=== PATIENT | male | born 1975 | race Caucasian/White ===

== ENCOUNTER 2018-12-29 12:05 | Emergency (ER) | payer MEDICAID, SELFPAY ==
[2018-12-29 12:06] VITALS: BP 122/85; PULSE 112; RESP 18; TEMP 36.6; O2SAT 98; BMI 32.4
--- NOTE | 2018-12-29 13:21 | ED.DCSUM_ITS ---
History of Present Illness Chief Complaint: Back Informant: Patient, Family Onset: Month(s) - Onset of symptoms approximately 1 month ago Context: Gradual Onset Injury: - - No history of trauma Timing: Continuous Quality: Dull, Aching Location: Lumbar, Buttock, Left Leg - Posteriorly to the ankle Current Severity: Severe Maximum Severity: Severe Worsened by: improves with: Movement, Ambulation, Bending Relieved by: Nothing Associated Symptoms: Radiation to Left Leg Narrative: Patient is a 43-year-old male status post back surgery by spine surgeon at [facility]. He does not know what was done. He presents with 1 month of left lower back pain radiating down the posterior aspect the left lower extremity the ankle. He denies bowel or bladder dysfunction. He denies saddle paresthesia or anesthesia. He denies fever, chills or night sweats. He denies foot drop. He denies weakness in his quadricep muscles going up or down steps. He does report leg giving out with severe pain. He states he would prefer to stand versus sit. Prior similar symptoms: Yes Recent Illness/Hospitalization: Yes - Past Medical History (1) History of diabetes mellitus Status: Acute (2) History of hypertension Status: Acute (3) History of hypercholesterolemia Status: Acute Past Medical History - Allergies and Home Meds Allergies/Adverse Reactions: Allergies aspirin Allergy (Verified 12/29/18 12:08) Angioedema Primary Care Physician: Angeles Montenegro,Out of [Primary Care Provider] - Prior records reviewed: Yes Surgical History: - - Prior back surgery Lives: Spouse/ Significant Other Smoking Status: Current every day smoker Drugs: None Review of Systems General: Denies: Chills, Fever, Malaise, Subjective, Sweats, Weight loss Eyes: Denies: Visual changes - bilaterally, Blurred Vision - bilaterally Cardiovascular: Denies: Chest pain, Palpitations Respiratory: Denies: Dyspnea, Cough, Dyspnea on exertion Gastrointestinal: Denies: Abdominal pain, Nausea, Vomiting, Diarrhea Musculoskeletal: Reports: Back pain, Extremity Pain. Denies: Myalgias, Arthralgias, Neck pain, Swelling Skin: Denies: Rash Neurological: Denies: Weakness, Parasthesia, Numbness Hematologic: Denies: Easy bruising, Easy bleeding Allergy: Denies: Uticaria, Swelling of the mouth Physical Exam Vital Signs/Narrative: Vital Signs Temp Pulse Resp BP Pulse Ox 12/29/18 12:06 98 F 112 H 18 122/85 H 98 Inital Vital Signs reviewed: Yes General: Well nourished, Well developed, - - Patient appears in discomfort. He is tachycardic. Head: Normocephalic, Atraumatic Eyes: Perrl, EOMI. Negative for: Pale conjunctiva, Scleral icterus ENT: Moist mucous membranes, No rhinorrhea Neck: Supple, Nontender Cardiovascular: Regular rate, Regular rhythm, No murmurs, Normal S1, Normal S2 Respiratory: No distress, CTA bilaterally, Chest nontender Rectal: - - Normal perianal sensation Back: Normal Inspection, Surgical Scar, Well-Healed, Negative SLR - Right, Positive SLR - Left. Negative for: Nontender, Paraspinal Tenderness, CVA tenderness, Positive SLR - Right Extremeties: Nontender, No edema, - - PT and DP pulses are palpable Skin: Normal color, No rash. Negative for: Cyanosis, Jaundice Neuro: Alert, Oriented, Normal Strength, Normal Sensation, Normal DTR, Normal Gait, Normal Reflexes - Patella and ankle reflexes are 2-3+ and symmetric. Reflexes: Right Patellar, Right Achilles, Left Patellar, Left Achilles. Negative for: Right Clonus, Right Babinski, Left Clonus, Left Babinski Psychological: Normal affect Diagnostic/Tx/Re-eval - Medical Decision Making Patient's history and exam concerning for L5-S1 disc herniation. Patient unable to stand to walk because of pain. Will medicate with 4 mg of Zofran 8 mg of morphine and reassess. There are no neurologic deficits noted. Patient was reevaluated at 1445. He is still in sniffing of pain. He was able to stand. He does not have a foot drop. He is able to do a 1 legged squat right and left with significant difficulty on the left secondary to pain. He is able to raise up on his toes and heels. Unable to walk on his heels or toes. Since pain is in a radicular pattern with a positive straight leg raise and significant discomfort in spite of IV morphine 8 mg x 2 an MRI with and without contrast was ordered. Since he is diabetic BMP was ordered to determine renal function. Disposition to be made after MRI results are available for review. ED Disposition - Plan for ED Patient: Diagnosis: Left-sided low back pain with sciatica Referrals: [facility] Doctor,Out of [Primary Care Provider] -
[2018-12-29] MEDS: Ondansetron 4 MG/2 ML Vial IV (13:33)
[2018-12-29] MEDS: morphine 8 MG/ML Syringe IV ×2 (13:33→15:07)
--- NOTE | 2018-12-29 14:56 | MRI_ITS ---
STUDY: MRI LUMBAR SPINE WITH AND WITHOUT CONTRAST REASON FOR EXAM: Male, 43 years old. Back pain, right-sided radiculopathy TECHNIQUE: Standardized fat and water weighted pulse sequences were obtained in the sagittal and axial planes. 18 IV Dotarem was administered for the contrast portion of the examination. COMPARISON: None FINDINGS: T12-L1: Normal endplates. Normal disc height, hydration and morphology. Normal bilateral facet joints. Normal central canal and bilateral lateral recesses. Normal bilateral intervertebral neural foramina. Normal lumbar lordosis. There is no substantial scoliosis. Normal conus medullaris that terminates at the L1-2: Normal endplates. Normal disc height, hydration and morphology. Normal bilateral facet joints. Normal central canal and bilateral lateral recesses. Normal bilateral intervertebral neural foramina. L2-3: Normal endplates. Normal disc height, hydration and morphology. Normal bilateral facet joints. Normal central canal and bilateral lateral recesses. Normal bilateral intervertebral neural foramina. L3-4: Normal endplates. Normal disc height, hydration and morphology. There is mild facet spondylosis Normal central canal and bilateral lateral recesses. Normal bilateral intervertebral neural foramina. L4-5: Small right posterior paracentral bulging annulus is increased T2 signal within the posterior disc margin. There is no significant central canal stenosis. There is mild ligamentous hypertrophy. There is mild facet spondylosis. There is no significant foraminal stenosis. L5-S1: There are postsurgical changes with left-sided laminectomy at L5. This susceptibility artifact within the posterior soft tissues. There is nonenhancing left paracentral, posterior lateral inferior extrusion. There is also some surrounding enhancing epidural scar. This posterior displacement of the left S1 nerve root within the central canal. There is mild posterior displacement right S1 nerve root within the central canal. There is mild central canal and mild bilateral foraminal stenosis Normal visualized sacral ala. Normal visualized paraspinous soft tissue structures. There is significant distention of the bladder. MRI/Spine Lumbar W/WO Contrast IMPRESSION: postsurgical changes with left-sided laminectomy at L5. This susceptibility artifact within the posterior soft tissues. There is nonenhancing left paracentral, posterior lateral inferior extrusion at L5-S1. There is also some surrounding enhancing epidural scar. This posterior displacement of the left S1 nerve root within the central canal. There is mild posterior displacement right S1 nerve root within the central canal. There is mild central canal and mild bilateral foraminal stenosis Small right paracentral bulging annulus and aortic annular tear at L4-L5 Significant bladder distention Electronically Signed: Steven Conde, at 16:50 EDT Tel , Service support ,
[2018-12-29 15:22] LABS: Absolute Lymphocyte Count 1.87 X10^3/ul (0.83-4.51); Absolute Neutrophil Count 3.6 X10^3/uL (2.0-7.7); Basophil# 0.02 X10^3/uL; Basophil% 0.3 % (0-1); Eosinophil# 0.05 X10^3/uL; Eosinophils% 0.8 % (0-5); Hematocrit 44.6 % (40-54); Hemoglobin 16.2 g/dl (13.0-16.5); Lymphocyte # 1.87 X10^3/ul (4.0); Lymphocyte % 31.7 % (19-41); Mean Corp Hgb Conc 36.3 g/gl (32-36); Mean Corpuscular Hgb 29.8 pg (27.0-32.0); Mean Corpuscular Volume 82.1 fL (80-94); Mean Platelet Vol. 10.7 fl (6.2-12.0); Monocyte# 0.32 X10^3/uL; Monocyte% 5.4 % (0-10); Neutrophil # 3.62 X10^3/uL (2.7-7.7); Neutrophil % 61.6 % (47-70); POSITIVE COUNT NO; POSITIVE DIFFERENTIAL NO; Platelet Count 191 K/mm3 (150-450); RBC Distribution Width CV 13.3 % (11.6-14.6); RBC Distribution Width SD 39.2 fl (35.1-43.9); Red Blood Count 5.43 M/mm3 (4.6-6.2); White Blood Count 5.9 K/mm3 (4.4-11.0)
[2018-12-29 15:23] LABS: POSITIVE MORPHOLOGY NO
[2018-12-29 15:30] LABS: Anion Gap 6 (5-15); BUN 15 mg/dL (7-18); BUN/Creat Ratio 15.4 RATIO (10-20); Calcium,Total 9.5 mg/dL (8.5-10.1); Chloride 99 mmol/L (98-107); Creatinine, Serum 0.98 mg/dL (0.70-1.30); EST Glomerular Filtration Rate 90 mL/min (>60); Est Glom Filt Rate - Afr Amer 109 mL/min (>60); Estimated Creatinine Clearance 86.29 ml/min; Glucose 212 mg/dL (74-106); Potassium 3.9 mmol/L (3.5-5.1); Sodium Level 134 mmol/L (136-145)
[2018-12-29 16:05] VITALS: BP 119/76; PULSE 97; RESP 14; O2SAT 95
[2018-12-29] MEDS: HYDROmorphone 1 MG/ML Syringe IV ×2 (16:49→19:25)
--- NOTE | 2018-12-29 17:18 | NURSING ---
CALLED [facility] FOR TRANSFER
--- NOTE | 2018-12-29 17:52 | NURSING ---
ACCEPTED AT [address] ROOM [address] BED A NURSE TO NURSE [phone]
--- NOTE | 2018-12-29 18:16 | NURSING ---
CALLED [facility] [place]
[2018-12-29 18:39] VITALS: BP 142/67; PULSE 87; RESP 16; O2SAT 96
== END 2018-12-29 18:42 | disposition short-term general hospital (02) ==
PROVIDERS: Emergency Provider Emergency Medicine
DX: M54.42 Lumbago with sciatica, left side (principal); E11.9 Type 2 diabetes mellitus without complications; I10 Essential (primary) hypertension; F17.200 Nicotine dependence, unspecified, uncomplicated
CPT/HCPCS: 72158; 80048; 85025; 96374; 96375; 96376; 99284; A9575; A4216; J2405